=== PATIENT | female | born 1990 | race African-American/Black ===

== ENCOUNTER 2024-03-23 12:21 | Emergency (ER) | payer OTHER ==
[2024-03-23] MEDS ORDERED: Ketorolac Tromethamine 60 MG/2 ML VIAL ONE (13:06)
== END 2024-03-23 13:15 | disposition home or self-care (01) ==
LOC: BURERS 12:21
DX: S39.012A Strain of muscle, fascia and tendon of lower back, initial encounter (principal); G44.209 Tension-type headache, unspecified, not intractable; X58.XXXA Exposure to other specified factors, initial encounter
CPT/HCPCS: 96372; 99283; J1885